=== PATIENT | female | born 1995 | race Caucasian/White ===

== ENCOUNTER → 2020-03-25 11:18 | Outpatient (BNVA) | payer OTHER, SELFPAY | PROVIDERS: PCP Physician Assistant; Visit Provider Obstetrics & Gynecology | DX: Z09 Encounter for follow-up examination after completed treatment for conditions other than malignant neoplasm (principal); Z30.9 Encounter for contraceptive management, unspecified | CPT/HCPCS: 99212 ==

== ENCOUNTER 2020-04-01 08:31 | Outpatient (REF) | payer OTHER, SELFPAY | END 2020-04-01 08:32 | disposition home or self-care (01) | LOC: HO.LAB 08:31 | PROVIDERS: Visit Provider Internal Medicine | DX: Z20.828 Contact with and (suspected) exposure to other viral communicable diseases (principal) | CPT/HCPCS: C9803; U0003 ==

== ENCOUNTER 2020-11-19 08:16 | Outpatient (REF) | payer OTHER, SELFPAY ==
[2020-11-19 15:21] LABS: CT PCR NOT DETECTED (Not Detect.); NG PCR NOT DETECTED (Not Detect.)
== END 2020-11-19 08:17 | disposition home or self-care (01) ==
LOC: HO.LAB 08:16
PROVIDERS: Visit Provider Advanced Practice Midwife
DX: Z30.42 Encounter for surveillance of injectable contraceptive (principal); Z20.2 Contact with and (suspected) exposure to infections with a predominantly sexual mode of transmission
CPT/HCPCS: 81025; 87491; 87591; 88142; 96372

== ENCOUNTER 2020-11-22 14:12 | Outpatient (REF) | payer OTHER, SELFPAY | END 2020-11-22 14:13 | disposition home or self-care (01) | LOC: HO.LAB 14:12 | PROVIDERS: Visit Provider Advanced Practice Midwife | DX: Z13.89 Encounter for screening for other disorder (principal) ==

== ENCOUNTER → 2021-03-31 16:06 | Outpatient (BNVA) | payer OTHER, SELFPAY | PROVIDERS: Visit Provider Advanced Practice Midwife ==

== ENCOUNTER 2025-04-10 09:53 | Outpatient (AMB) | payer OTHER, SELFPAY ==
--- NOTE | 2025-04-10 09:56 | MHC.PC.OV ---
Vital Signs 04/10/25 10:02 Height 5 ft 2 in Weight 186 lb BMI 34.0 BP 138/74 Blood Pressure Location Rt brachial Position Sitting Respiration 12 Pulse 78 Pulse Source Pulse Oximeter Temp 97.2 F Temp Source Oral Pulse Oximetry (%) 99 Oxygen Delivery Method Room Air Intake Visit Reasons: CPE Intake Note: New patient to establish care and cpe Abalone Fisherman Required: No Patient : No Allergies seasonal allergies Allergy (Unknown, Uncoded 04/10/25 10:18) Unknown Medication List - Last Reviewed 04/10/25 by Mg Matos MA ketoconazole 2% appl topical BID ketoconazole 2% topical medroxyprogesterone (Depo-Provera) 150 mg IM [id number] mometasone 0.1% topical PNV,calcium 66-[id number] acid 27 mg iron- 1 mg (M-Lisha Plus) 1 tab PO DAILY triamcinolone acetonide 0.1% appl topical Tobacco use date assessed: 04/10/25 Dental Screening Dental Screen Date: 04/10/25 Did you have a dental visit in the last 12 months?: No Did you have a dental problem in the last 6 months where you did not have access to dental care?: No Was dental information given to patient?: Patient has dentist HPI HPI Comments History of Present Illness Details 30 y/o F with Iron Def anemia, obesity, seasonal allergies, fhx colon ca (MGM) s/p dilation and evacuation of her at 18 6/7 weeks for suspected placental abruption in the second trimester. Social: 3 children (2 girls 1 boy) Fhx: Mom w/ HTN, MGM with HTN colon ca Health Maintenance: Tdap 2024 Flu 03/2025 Pap 2020 [facility] [employer] [facility] History of Present Illness The patient is a 30-year-old female presenting to establish primary care for a CPE No previous medical records avail. Obesity: - The patient has a history of obesity with a BMI of 34. Seborrheic Dermatitis: - The patient reports that her dermatitis sometimes spreads to her face, and she uses ketoconazole cream and shampoo, which helps it resolve. Allergic Rhinitis: - The patient has a history of seasonal allergies which are not currently bothering her. - She manages her symptoms with Zyrtec. Contraceptive Management: - The patient is using Depo-Provera for control. Recent : - She had an uneventful and delivered a baby girl at [facility] two months ago. - She did not have any issues with diabetes or hypertension during the . - She reports that she had some leg swelling after giving , which has since resolved. - The patient is not . Past Medical History - Obesity with a BMI of 34 - History of iron deficiency anemia - Seborrheic dermatitis - Seasonal allergies - Recent was uneventful without hypertension or diabetes. Past Surgical History - History of dilation and curettage (D&C) Family History - Mother has high blood pressure - Maternal grandmother had high blood pressure and colon cancer Social History - The patient has three children: a 10-year-old daughter, an 8-year-old son, and a 2-month-old daughter. - She lives at home with her three children. - She reports feeling safe at home. - She is not . Review of Systems - Constitutional: Reports feeling well. - ENT: Reports seasonal allergies that are well-managed. - Skin: Reports dermatitis on the face that resolves with ketoconazole. - Cardiovascular: Denies swelling in her legs currently but had some which has resolved. - Gastrointestinal: Reports normal bowel movements and urination. - Psychiatric: Reports good mood and denies anxiety or depression. Physical Exam General: Well developed, well nourished, in no acute distress. Appears stated age. Head: Normocephalic, atraumatic. Eyes: Pupils are equal, round and reactive to light and accommodation. Conjunctivae are clear. Scleras nonicteric bilat. Vision grossly normal. Ears: TMs clear AU, EACS WNL Nose: Patent, without discharge. Slight evidence of allergies noted. Neck: No carotid bruit bilat. Supple, no adenopathy or thyromegaly. Breast: Edu on SBE Lungs: Clear to auscultation bilaterally. No rales, rhonchi or wheeze noted. Good air flow in all burns. Heart: Regular rate and rhythm. No murmurs, click, rubs or gallops are noted. Abdomen: Bowel sounds present in all quadrants. The abdomen is soft, nontender, with no masses or organomegaly noted. No hernias are noted. : Deferred. Reviewed recommendations for routine [employer] Musculoskeletal: Joints are nontender, without swelling, redness, or effusions. Range of motion is observed to be normal. Pulses: Peripheral pulses are equal and palpable bilaterally. Extremities: No clubbing, cyanosis nor edema is noted. Neurologic: Gait and station normal. Cranial Nerves 2-12 intact. Motor strength grossly symmetrical and intact. No sensory loss. Balance normal. Skin: No rashes, ulcers, or lesions noted. Turgor is good. Skin color is good. Hair and nails are without abnormalities. Psych: Normal eye contact, affect and mood appropriate, and normal interactions. Patient is alert and appropriate to context. Mood reported as good, no problems with anxiety or depression. Medical Decision Making The patient is a 30-year-old female presenting to critical access hospital care after a recent uneventful . She is feeling well and has no acute complaints. Given her recent extensive lab work, no further blood work is indicated at this time. Her chronic conditions, including seborrheic dermatitis and allergic rhinitis, are stable and managed with ketoconazole and Zyrtec, respectively. Refills for ketoconazole were provided. The physical exam revealed diffuse abdominal tenderness, which will be monitored; the patient was instructed to follow up if it worsens. The plan is for routine annual follow-up for health maintenance. Plan Health Maintenance - The patient is establishing primary care. - No blood work was ordered as she recently had labs during her . - She will continue taking her vitamin. - Recommended to return in one year for a physical, or sooner if needed. - Information was provided regarding walk-in clinics and lab locations for future needs. 1. Seborrheic Dermatitis - The patient uses ketoconazole cream and shampoo for dermatitis that sometimes affects her face, which has been effective. - Refills for ketoconazole were sent to her preferred pharmacy, [facility]. 2. Allergic Rhinitis - The patient manages her seasonal allergies with Zyrtec. - She was advised to continue monitoring her symptoms. 3. Contraceptive Management - The patient is currently using Depo-Provera for contraception and will continue. 4. Abdominal Tenderness - The patient was found to have some mild abdominal tenderness on exam. - She was advised to monitor this and to follow up if it worsens. Patient Instructions - Come back in one year for your annual physical exam, unless you need to be seen sooner. - If your abdominal tenderness gets worse, please let me know. - Refills for your ketoconazole cream and shampoo have been sent to your pharmacy. - Continue taking your vitamin. - If you get sick and cannot reach me, you can use the walk-in clinics in [place] or [place]. - Continue using Zyrtec for your seasonal allergies as needed. Consent Patient was informed and verbally consented to the use of an ambient scribe for clinic note documentation during this visit. An additional 15 minutes was spent addressing the problem(s) noted at todays visit. This includes time spent before the visit reviewing the chart, time spent during the visit, and time spent after the visit on documentation reviewing laboratory results, diagnostic imaging, medications, performing a medically necessary evaluation, counseling on diagnoses, care coordination, ordering appropriate tests, ordering appropriate medications, review of tests performed by other providers, reporting test results with the patient, communication with other healthcare providers. [facility] Medical History (Updated 04/10/25 @ 10:33 by Lindsey Chavez [facility]) No pertinent past medical history Surgical History (Updated 04/10/25 @ 10:05 by Mg Matos MA) H/O dilation and curettage No pertinent past surgical history Family History (Updated 04/10/25 @ 09:58 by Mg Matos MA) Father Medical history unknown Mother No problems noted. Maternal Grandmother Diabetes Colon cancer Son In good health Daughter In good health Sister In good health Brother No problems noted. Brother No problems noted. Brother No problems noted. Brother No problems noted. Social History (Updated 04/10/25 @ 10:05 by Mg Matos MA) Household Members: Children Both parents involved: No Caregiver staying overnight: No Housing: Apartment Are you a primary child adolescent care to a significant other at home: Yes Do you presently have visiting nurse or other home services: No 75 years or older and lives alone: No Alcohol intake: never Patient Tobacco Use Status: Never used Tobacco e-Cigarette/Vaping Use: Never Used Second Hand Smoke Exposure: No Substance Use Type: Marijuana Current occupational status: unemployed Current occupational exposures/hazards: No Cognitive needs: No Hearing needs: No Vision needs: No Questionnaire PHQ-9 Over the last 2 weeks, how often have you been bothered by any of the following problems? 1. Little interest or pleasure in doing things: not at all 2. Feeling down, depressed, or hopeless: not at all 3. Trouble falling or staying asleep, or sleeping too much: not at all 4. Feeling tired or having little energy: not at all 5. Poor appetite or overeating: not at all 6. Feeling bad about yourself - or that you are a failure or have let yourself or your family down: not at all 7. Trouble concentrating on things, such as reading the newspaper or watching television: not at all 8. Moving or speaking so slowly that other people could have noticed. Or the opposite - being so fidgety or restless that you have been moving around a lot more than usual: not at all 9. Thoughts that you would be better off or of hurting yourself in some way: not at all Total score: 0 Depression Screening Interpretation: Negative Depression Screening Done: Yes 45691 - PHQ-9 Billing: Yes Source: Developed by Drs. Faizan Ambrose, Rupa Mercado, Conner Ruiz and colleagues, with an educational yessy from edo. Thrive Questionnaire Date Thrive assessed: 04/10/25 I am a: Patient What is your living situation today?: I have a steady place to live Within the past 12 months, did the food you bought not last and you didn't have the money to get more?: Never true Within the past 12 months, did you worry whether your food would run out before you got money to buy more?: Never true Do you have trouble paying for medicines?: No Do you have trouble getting transportation to medical appointments?: No Do you have trouble paying your heating and electricity bill?: No Do you have trouble taking care of your child, family member or friend?: No Do you have trouble with day-to-day activities such as bathing, preparing meals, shopping, managing finances, etc.?: No Are you currently unemployed and looking for a job?: Yes Are you interested in more education?: Yes Please select the resources that you would like help with: None Currently or been in a relationship where the following occur: No concerns reported THRIVE Score: 0 AUDIT C Alcohol Use Questionnaire (AUDIT-C) 1. How often do you have a drink containing alcohol?: Never 3. How often do you have six or more drinks on one occasion?: Never Total Score: 0 Score Reviewed/Action Taken: Yes KRISS-7 AMB Questionnaire KRISS-7 Date KRISS - 7 assessed: 04/10/25 Feeling nervous, anxious, or on edge: 0 = Not at all Not being able to stop or control worryin = Not at all Worrying too much about different things: 0 = Not at all Trouble relaxin = Not at all Being so restless that it is hard to sit still: 0 = Not at all Becoming easily annoyed or irritable: 0 = Not at all Feeling afraid as if something awful might happen: 0 = Not at all Total KRISS-7 score (0-4 normal; 5-9 mild; 10-14 moderate; 15-21 severe): 0 Source: Developed by Drs. Faizan Ambrose, Rupa Mercado, Conner Ruiz and colleagues, with an educational yessy from [employer]o. KRISS-7 Assessment Billing KRISS-7 Assessment Tool: KRISS-7 Assessment 59495 Physical exam (Primary Care) Vital Signs: Last Vital Signs Temp 97.2 F 04/10/25 10:02 Pulse 78 04/10/25 10:02 Resp 12 04/10/25 10:02 BP 138/74 04/10/25 10:02 Pulse Ox 99 04/10/25 10:02 Oxygen Delivery Method Room Air 04/10/25 10:02 BMI result Body Mass Index 34.0 BMI Assessment/Plan discussion: High BMI High, discussed plan: lifestyle Tobacco/Smoking Status: Tobacco use Status Tobacco use date assessed 04/10/25 04/10/25 10:00 Patient Tobacco Use Status Never used Tobacco 04/10/25 10:05 e-Cigarette/Vaping Use Never Used 04/10/25 10:05 PHQ-9: PHQ-9 Score PHQ-9: Total score 0 04/10/25 10:06 Depression Screening Interpretation: Negative Thrive Assessment: Date of Thrive Assessment Date Thrive assessed 04/10/25 04/10/25 09:58 Currently or been in a relationship where the following occur: No concerns reported Coding Level of Care Code New Pt Level 2 (07297) New Pt Prev Care 18-39yr(58899 Diagnoses Encounter to establish care Z76.89 Obesity (BMI 30-39.9) E66.9 Iron deficiency anemia, unspecified iron deficiency anemia type D50.9 Iron deficiency anemia type: unspecified iron deficiency Seborrheic dermatitis L21.9 History of Papanicolaou smear of cervix Z92.89 Adult general medical exam Z00.00 Additional Codes KRISS-7 Assessment Billing - KRISS-7 Assessment Tool: KRISS-7 Assessment 23679 ([id number]) PHQ-9 - 99932 - PHQ-9 Billing: Yes ([id number]) Assessment & Plan Assessment & Plan (1) Encounter to establish care: Code(s): Z76.89 - Persons encountering health services in other specified circumstances (2) Obesity (BMI 30-39.9): Code(s): E66.9 - Obesity, unspecified Category: Medical (3) Iron deficiency anemia: Comment: history of Code(s): D50.9 - Iron deficiency anemia, unspecified Category: Medical Qualifiers: Iron deficiency anemia type: unspecified iron deficiency Qualified Code(s): D50.9 - Iron deficiency anemia, unspecified (4) Seborrheic dermatitis: Code(s): L21.9 - Seborrheic dermatitis, unspecified Category: Medical (5) History of Papanicolaou smear of cervix: Onset Date: ~2020 Code(s): Z92.89 - Personal history of other medical treatment Category: Medical (6) Adult general medical exam: Onset Date: ~04/10/25 Code(s): Z00.00 - Encounter for general adult medical examination without abnormal findings Category: Medical Plan . Medications: New ketoconazole 2% 1 appl topical BID 15 grams 1RF ketoconazole 2% 1 appl topical Q2W 120 mL 2RF mometasone 0.1% 1 appl topical DAILY 60 mL 1RF triamcinolone acetonide 0.1% 1 appl topical BID 30 grams 1RF Patient Instructions: Walk-In Care (Urgent Care): We Make it Easy Walk-in for urgent medical issues such as: ? Seasonal Allergies ? Insect Bites ? Cough ? Diarrhea ? Acute Asthma Attacks ? Back, Knee or Joint Pain ? Ear Infection ? Fever without a Rash ? Headaches ? Nausea ? [place] Eye, Rash or Skin Irritation ? Sore Throat ? Sports Physicals ? Vomiting Most insurances are accepted. Patients do not need to be part of the [facility] to seek care at the walk-in clinic. Locations [address] [place] [address] Open Sunday through Sunday 8am-5pm *Hours may vary due to staffing availability. To confirm Walk-In Care hours please call. [address] [facility] , [place] [address] ? [phone] [facility] Walk-In Care in [place] provides services to ages 18 and over. Open Sunday-Sunday: 7 a.m. to 5 p.m. and Sunday: 9 a.m. to 3 p.m.* *Hours may vary due to staffing availability. To confirm Walk-In Care hours in [place], please call [phone]. [address] [place] [address] ? [phone] [facility] [place] Walk-In Care in [place] provides services to ages 12 and over. Open Sunday-Sunday: 8 a.m. to 5 p.m. Hours may vary due to staffing availability. To confirm Walk-In Care hours in [place], please call [phone]. LABORATORY SERVICES: [facility] ? Primary Location [address] [place] [address] Sunday through Sunday 6:00 AM ? 5:00 PM Sunday 7:00 AM ? 11:00 AM* [phone] The [facility] is centrally located near the front entrance of the [facility] for easy outpatient access. Convenient parking is provided for outpatients. *Hours may vary due to staffing availability. To confirm Laboratory hours for any location, please call [phone]. Offsite Location For your convenience, we offer offsite laboratory draw stations at the following locations: [address] [place] [address] ? [address], [address] Sunday through Sunday 7:30 AM ? 1:00 PM* [phone] *Hours may vary due to staffing availability. To confirm Laboratory hours for any location, please call [phone]. [place] ? [address] Sunday through Sunday 6:00 AM ? 3:30 PM* Sunday 6:30 AM ? 3 PM* [phone] *Hours may vary due to staffing availability. To confirm Laboratory hours for any location, please call [phone]. [address] [facility] Sunday through Sunday 7:30 AM ? 4:00 PM* [phone] *Hours may vary due to staffing availability. To confirm Laboratory hours for any location, please call [phone]. [address] [facility] Sunday through 9:00 AM ? 4:00 PM* *Hours may vary due to staffing availability. To confirm Laboratory hours for any location, please call [phone]. Appointments are not necessary. Walk-ins are welcome. Like all the departments throughout the [facility], our Lab undergoes frequent reviews to ensure the quality and accuracy of test results, and our staff takes special pride in its status as a nationally accredited facility. Patient Portal: [facility] ONE PATIENT. ONE RECORD. BETTER CARE. [facility] has a fully integrated, cutting-edge mobile electronic health information system that has revolutionized the way we care for our patients and manage our organization. This system improves communication and coordination enabling us to provide safe, higher-quality care, and an overall positive experience for staff and patients. Our first priority, as always, is to deliver the highest quality care possible. The system is running in the background supporting that priority. This portal is for all [facility] services and practices. If you are experiencing any technical difficulties with enrolling or logging into the Patient Portal please complete the [facility] Patient Portal Technical Support Form. [facility] now offers a new secure on-line interactive tool for patients to review their health information ? ?Patient Portal. This interactive web portal will enable patients and their families to take an active role in their care by providing easy, secure access to their health information via the internet. The Patient Portal provides patients with instant access to their health information, including laboratory results, medications, allergies, demographic information, visit history, and more. In addition to managing their own care, parents and health care proxies with authorized consent will appreciate the ability to access the records of those individuals for whom they provide care. Please note: if you wish to gain access (Proxy) to another patient?s portal, you will be required to come to the Medical Records Department in person at [facility]. Both the patient giving proxy access and the proxy will need to provide photo identification and complete the appropriate authorization. The Patient Portal also allows track their appointments online. The [facility] Patient Portal also saves patients time by allowing them to submit updates to their demographic and contact information prior to their visits. Portal email notifications will also alert patients to any new activity on their portal, such as test results and new appointments. In order to initially enroll in the [facility] Patient Portal, you will need to enter some required information including the following: your [facility] Medical Record number your personal home email address name date of Please note: In order to enroll in the [facility] Patient Portal, we need to have your email address on file in your electronic medical record. ?The email address needs to be specific for one person (yourself) in order for your Portal enrollment to be successful. ?You can update your email address in person with our Registration staff when you are registering for a hospital visit. ?Otherwise, you will need to come to the Health Information Management (Medical Records) Department at [facility]. ?We are open from Sunday ? Sunday from 7:30 a.m. ? 4:30 p.m. ?You will be required to present a photo id. Once you have successfully enrolled in the Patient Portal, you will receive a one-time user id and password for the Portal, sent to your email address. ?This will allow you to log into the Patient Portal within 99 hrs and reset your own logon id and password, and define personal security questions. ?Once your permanent login and password have been set, you can log into the [facility] Patient Portal at any time via the blue button above or from the Portal Logon button on any page of the [facility] website. [facility] and [facility] encourage all of our patients to enroll in Patient Portal as it presents a valuable opportunity for patients and their families to actively participate in their care and stay healthy Welcome to [facility]. ?We look forward to working with you. Health screenings for women You should visit your health care provider from time to time, even if you are healthy. The purpose of these visits is to: Screen for medical issues Assess your risk for future medical problems Encourage a healthy lifestyle Update vaccinations and other preventive care services Help you get to know your provider in case of an illness Information Even if you feel fine, you should still see your provider for regular checkups. These visits can help you avoid problems in the future. For example, the only way to find out if you have high blood pressure is to have it checked regularly. High blood sugar and high cholesterol levels also may not have any symptoms in the early stages. A simple blood test can check for these conditions. There are specific times when you should see your provider or receive specific health screenings. The [place] Preventive Services Task Force publishes a list of recommended screenings. Below are screening guidelines for women ages 18 to 39. BLOOD PRESSURE SCREENING Your blood pressure should be checked at least once every 3 to 5 years if: Your blood pressure is in the normal range (top number less than 120 mm Hg and bottom number less than 80 mm Hg) You don't have risk factors for high blood pressure Ask your provider if you need your blood pressure checked more often if: The top number is 120 to 129 mm Hg or the bottom number is 70 to 79 mm Hg You have diabetes, heart disease, kidney problems, are overweight, or have certain other health conditions You have a first-degree relative with high blood pressure You are Black You had high blood pressure during a If the top number is 130 mm Hg or greater or the bottom number is 80 mm Hg or greater, this is considered stage 1 hypertension. Schedule an appointment with your provider to learn how you can reduce your blood pressure. Watch for blood pressure screenings in your area. Ask your provider if you can stop in to have your blood pressure checked. BREAST CANCER SCREENING Experts do not agree about the benefits of breast self-exams in finding breast cancer or saving lives. Talk to your provider about what is best for you. A screening mammogram is not recommended for most women under age 40. Your provider may discuss and recommend mammograms, MRI scans, or ultrasounds if you have an increased risk for breast cancer, such as: A mother or sister who had breast cancer at a young age (most often starting screening earlier than the age the close relative was diagnosed) You carry a high-risk genetic marker CERVICAL CANCER SCREENING Cervical cancer screening should start at age 21 years unless your provider advises otherwise. After the first test: Women ages 21 through 29 should have a Pap test every 3 years. Exoprts do not agree on whether HPV testing is recommended for this age group. Women ages 30 through 65 should be screened with either a Pap test every 3 years or the HPV test every 5 years or both tests every 5 years (called cotesting ). Women who have been treated for precancer (cervical dysplasia) should continue to have Pap tests for 20 years after treatment or until age 65, whichever is longer. If you have had your uterus and cervix removed (total hysterectomy), and you have not been diagnosed with cervical cancer or precancer (high grade cervical neoplasia), you do not need cervical cancer screening. CHOLESTEROL SCREENING Cholesterol screening should begin at: Age 45 for women with no known risk factors for coronary heart disease Age 20 for women with known risk factors for coronary heart disease Repeat cholesterol screening should take place: Every 5 years for women with normal cholesterol levels More often if changes occur in lifestyle (including weight gain and diet) More often if you have diabetes, heart disease, kidney problems, or certain other conditions DIABETES SCREENING You should be screened for diabetes starting at age 35 and then repeated every 3 years if you have no risk factors for diabetes. Screening may need to start earlier and be repeated more often if you have other risk factors for diabetes, such as: You have a first degree relative with diabetes. You are overweight or have obesity. You have high blood pressure, prediabetes, or a history of heart disease. Screening for diabetes should be done if you are planning to become and you are overweight and have other risk factors such as high blood pressure. DENTAL EXAM Go to the dentist once or twice every year for an exam and cleaning. Your dentist will evaluate if you need more frequent visits. EYE EXAM Have an eye exam every 5 to 10 years before age 40. If you have vision problems, have an eye exam every 2 years or more often if recommended by your provider. You should have an eye exam that includes an examination of your retina (back of your eye) at least every year if you have diabetes. IMMUNIZATIONS Commonly needed vaccines include: Flu shot: get one every year. COVID-19 vaccine: ask your provider what is best for you. Tetanus-diphtheria and acellular pertussis (Tdap) vaccine: have one at or after age 19 as one of your tetanus-diphtheria vaccines if you did not receive it as an adolescent. Tetanus-diphtheria: have a booster (or Tdap) every 10 years. Varicella vaccine: receive 2 doses if you never had chickenpox or the varicella vaccine. Hepatitis B vaccine: receive 2, 3, or 4 doses, depending on your exact circumstances. Measles, mumps, and rubella (MMR) vaccine: receive 1 to 2 doses if you are not already immune to MMR. Your provider can tell you if you are immune. Ask your provider about the human papillomavirus (HPV) vaccine if: You have not received the HPV vaccine in the past You have not completed the full vaccine series (you should catch up on this shot) Ask your provider if you should receive other immunizations if you have certain health problems that increase your risk for some diseases such as pneumonia. INFECTIOUS DISEASE SCREENING Women who are sexually active should be screened for chlamydia and gonorrhea up until age 25. Women 25 years and older should be screened for chlamydia and gonorrhea if at high risk. Screening for hepatitis C: All adults ages 18 to 79 should get a one-time test for hepatitis C. people should be screened at every . Screening for human immunodeficiency virus (HIV): All people ages 15 to 65 should get a one-time test for HIV. Depending on your lifestyle and medical history, you may also need to be screened for infections such as syphilis and HIV, as well as other infections. PHYSICAL EXAM All adults should visit their provider from time to time, even if they are healthy. The purpose of these visits is to: Screen for disease Assess your risk of future medical problems Encourage a healthy lifestyle Update your vaccinations and other preventive care services Maintain a relationship with a provider in case of an illness Your height, weight, and BMI should be checked at every exam. During your exam, your provider may ask you about: Depression and anxiety Diet and exercise Alcohol and tobacco use Safety issues, such as using seat belts, smoke detectors, and intimate partner violence Your medicines and risk for interactions SKIN SELF-EXAM Your provider may check your skin for signs of skin cancer, especially if you're at high risk, such as if you: Have had skin cancer before Have close relatives with skin cancer Have a weakened immune system OTHER SCREENING Talk with your provider about colon cancer screening if you have a strong family history of colon cancer or polyps, or if you have had inflammatory bowel disease or polyps yourself. Routine bone density screening of women under 40 is not recommended.
[2025-04-10 10:02] VITALS: BP 138/74; PULSE 78; RESP 12; TEMP 36.2; O2SAT 99; BMI 34.0
--- OUTSIDE RECORDS SUMMARY | 2025-04-10 11:09 | XMS_ITS | Encounter Summary ---
Author Organization [facility] Address [address] [place] [address] Care Team Providers Care Sludge Filtration Operator Name Role Phone Unavailable Primary Care Provider Unavailabl e Encounter Details Date Type Department Care Team (Latest Contact Info) Description 08/17/2021 Abstract [facility] CONVERSIONS Dental, Provider, DDS Social History Tobacco Use Types Packs/Day Years Used Date Smoking Tobacco: Never Assessed Comments Unknown Sex and Gender Information Value Date Recorded Sex Assigned at Female 03/27/2022 10:18 AM EDT Legal Sex Female 10:18 AM EDT Gender Identity Female 03/27/2022 10:18 AM EDT Sexual Orientation Straight 03/27/2022 10 :18 AM EDT documented as of this encounter Plan of Treatment Upcoming Encounters Date Type Department Care Team (Late st Contact Info) Description 06/10/2025 1:30 PM EST Office Visit [facility] ADULT DENTAL [address] [place] [address] Joel Rossaris [address] [place] [address] documented as of this encounter Visit Diagnoses Not on filedocumented in this encounter
--- OUTSIDE RECORDS SUMMARY | 2025-04-10 11:09 | XMS_ITS | Encounter Summary ---
Author Organization [facility] Address [address] [place] [address] Care Team Providers Care News Cameraman Name Role Phone Unavailable Primary Care Provider Unavailabl e Encounter Details Date Type Department Care Team (Latest Contact Info) Description 08/06/2019 Abstract [facility] CONVERSIONS Dental, Provider, DDS Social History Tobacco [...] Description 06/10/2025 1:30 PM EST Office Visit [facility] ADULT DENTAL [address] [place] [address] Vandana, Dyan [address] [place] [address] documented as of this encounter Visit Diagnoses Not on filedocumented in this encounter
--- OUTSIDE RECORDS SUMMARY | 2025-04-10 11:09 | XMS_ITS | Clinical Summary ---
Author Organization [facility] Address [address] [place] [id number] Phone Care Team Providers Care Chef Manager Name Role Phone Yamilet Morales MD Primary Care Provider Unavailabl e Immunizations Immunization Administration Dates Next Due DTaP 5 08/20/2001, 1,1997,1996 Hep B, ped/adol 09/27/2000,1997,1997 Hib (PRP-T) 09/27/2000,1997,1997 IPV 08/20/2001, 1,1997,1996 MMR 08/20/2001,09/27/2000 Td (adult) (MBL), 2 Lf tetan us toxoid, PF, adsorbed 12/19/2005 Varicella 10/25/2000 Family History Relation Name Status Comments Brother Brother: ADD/AD HD Mother Mother: Depress ion Social History Tobacco Use Types Packs/Day Years Used Date Smoking Tobacco: Never Assessed Comments Unknown Sex and Gender Information Value Date Recorded Sex Assigned at Not on file Legal Sex Female 4:16 PM EDT Gender Identity Not on file Sexual Orientation Not on file Plan of Treatment Health Maintenance Due Date Last Done Comments Varicella Vaccines (2 of 2 - 2-dose childhood series) 09/17/2001 10/25/2000 DTaP,Tdap,and Td Vaccines (5 - Tdap) 02/17/2008 12/19/2005, 08/20/2001, 09/27/2000, Additional history exists HPV Vaccines (1 - 3-dose SCDM series) 02/17/2024 Influenza Vaccines (#1) 2024 COVID-19 Vaccine ( season) 2025 HIB Vaccines Completed 09/27/2000, 07/26, 1997 Hepatitis B Vaccines Completed 09/27/2000, 1997, 1997 IPV Vaccines Completed 08/20/2001, 07/2000, 1997, Additional history exists MMR Vaccines Completed 08/20/2001, 09/27/2000 Hepatitis A Vaccines Aged Out No long er eligible based on patient's age to complete this topic Men B Vaccine Aged Out No longer elig ible based on patient's age to complete this topic Meningococcal Vaccine Aged Out No fran lv eligible based on patient's age to complete this topic Pneumococcal Vaccine Aged Out No long er eligible based on patient's age to complete this topic Care Teams Chef Manager Relationship Specialty Start Date End Date Yamilet Morales MD PCP - General 01/05/17
--- OUTSIDE RECORDS SUMMARY | 2025-04-10 11:09 | XMS_ITS | Encounter Summary ---
Author Organization [facility] Address [address] [place] [phone] Phone Care Team Providers Care Digestion Operator Name Role Phone Yamilet Morales MD Primary Care Provider Unavailabl e Encounter Details Date Type Department Care Team (Late st Contact Info) Description 01/11/2017 Conversion Encounter [facility] - [address] [phone] Social History Tobacco Use Types Packs/Day Years Used Date Smoking Tobacco: Never Assessed Comments Unknown Sex and Gender Information Value Date Recorded Sex Assigned at Not on file Legal Sex Female 4:16 PM EDT Gender Identity Not on file Sexual Orientation Not on file documented as of this encounter Plan of Treatment Not on file documented as of this encounter Visit Diagnoses Not on filedocumented in this encounter Care Teams Digestion Operator Relationship Specialty Start Date End Date Yamilet Morales MD PCP - General 01/05/17 documented as of this encounter
--- OUTSIDE RECORDS SUMMARY | 2025-04-10 11:09 | XMS_ITS | Clinical Summary ---
Author Organization [employer] Address [address] [place] [address] Care Team Providers Care Belt And Link Shop Supervisor Name Role Phone Unavailable Primary Care Provider Unavailabl e Allergies No known active allergies Medications No known medications Active Problems Problem Noted Date Diagnosed Date Dental abscess 10/17/2022 Dental calculus 08/28/2022 Bleeding gums 08/28/2022 Social History Tobacco Use Types Packs/Day Years Used Date Smoking Tobacco: Never Passive Smoke Exposure: Never Smokeless Tobacco: Never Tobacco Cessation:Counseling Given: No Alcohol Use Standard Drinks/Week Comments Never 0 (1 standard drink = 0.6 oz pur e alcohol) Comments Unknown Sex and Gender Information Value Date Recorded Sex Assigned at Female 03/27/2022 10:18 AM EDT Legal Sex Female 10:18 AM EDT Gender Identity Female 03/27/2022 10:18 AM EDT Sexual Orientation Straight 03/27/2022 10 :18 AM EDT Last Filed Vital Signs Vital Sign Reading Time Taken Comments Blood Pressure 116/70 08/28/2022 9:04 AM EDT Pulse 72 08/28/2022 9:04 AM EDT Temperature - - Respiratory Rate - - Oxygen Saturation - - Inhaled Oxygen Concentration - - Weight - - Height - - Body Mass Index - - Plan of Treatment Upcoming Encounters Date Type Department Care Team (Late st Contact Info) Description 06/10/2025 1:30 PM EST Office Visit [facility] ADULT DENTAL [address] [place], [place] [phone] VandanaJoelDyan [address] [place] [address] Health Maintenance Due Date Last Done Comments Depression Screening 1997 HIV Screening 1997 SDOH Screening 1997 Disability Screening 1997 Alcohol/Substance Use Screening 2009 Family Planning (PISQ) 02/17/2012 Hepatitis C Screening 2015 Pap Smear 2018 Dental Oral Exam 02/28/2023 08/28/2022 Dental Prophylaxis 02/28/2023 08/28/2022 Dental X-Ray: Bitewings 08/30/2023 08/28/2022 Tobacco Screening 10/18/2023 10/17/2022 COVID-19 Vaccine (2 - season) 2025 03/02/2021 Influenza Vaccine (#1) 2025 03/24/2017, 2012 Dental X-Ray: Full Mouth 10/18/2025 10/17/2022 DTaP/Tdap/Td Vaccines (8 - Td or Tdap) 12/25/2026 12/25/2016, 12/10/2014, 01/10/2011, Additional history exists Zoster Vaccines (1 of 2) 2047 RSV Patients and Patients Aged 60 years or older (1 - 1-dose 75+ series) 02/17/2072 HIB Vaccines Completed 09/27/2000, 07/26, 1997 Hepatitis B Vaccines Completed 09/27/2000, 1997, 1997 IPV Vaccines Completed 08/20/2001, 07/2000, 1997, Additional history exists Meningococcal Vaccine Aged Out 01/10/2011 No fran lv eligible based on patient's age to complete this topic HPV Vaccines Completed 05/23/2013, 12/26, 02/20/2007 Hepatitis A Vaccines Completed 05/23/2013, 01/11/20 11 Meningococcal B Vaccine Aged Out No l onger eligible based on patient's age to complete this topic Pneumococcal Vaccine: Pediatrics (0 to 5 Years) and At-Risk Patients (6 to 49) Years Aged Out No longer eligible based on patient's age to complete this topic RSV under 20 months Aged Out No longe r eligible based on patient's age to complete this topic Rotavirus Vaccines Aged Out No longer eligible based on patient's age to complete this topic Procedures Procedure Name Priority Date/Time Associated Diagnosis Comments PANORAMIC RADIOGRAPHIC IMAGE Routine 10/17/2022 1:00 PM EDT Full PROPHYLAXIS - ADULT Routine 023 9:00 AM EDT Dental calculus Bleeding gums BITEWINGS - 4 RADIOGRAPHIC IMAGES Routine 08/28/2022 9:00 AM EDT Dental calculus Bleeding gums PERIODIC ORAL EVALUATION - ESTABLISHED PATIENT Routine 08/28/2022 8:45 AM EDT from Last 3 Months or Most Recently Relevant to Health Maintenance Insurance [facility] MEDICAID STAND ADULT
--- OUTSIDE RECORDS SUMMARY | 2025-04-10 11:09 | XMS_ITS | Encounter Summary ---
Author Organization [facility] Address [address] [place] [address] Care Team Providers Care Roller Varnisher Name Role Phone Unavailable Primary Care Provider Unavailabl e Encounter Details Date Type Department Care Team (Latest Contact Info) Description 06/21/2020 Abstract [facility] CONVERSIONS Dental, Provider, DDS Social History Tobacco [...] Description 06/10/2025 1:30 PM EST Office Visit [facility] ADULT DENTAL [address] [place] [address] Joel Rossaris [address] [place] [address] documented as of this encounter Visit Diagnoses Not on filedocumented in this encounter
== END 2025-04-10 10:29 | disposition home or self-care (01) ==
LOC: HO.HMCFM 09:54
PROVIDERS: PCP Nurse Practitioner Family; Visit Provider Nurse Practitioner Family
DX: Z00.00 Encounter for general adult medical examination without abnormal findings (principal); D50.9 Iron deficiency anemia, unspecified; E66.9 Obesity, unspecified; Z68.34 Body mass index [BMI] 34.0-34.9, adult; L21.9 Seborrheic dermatitis, unspecified; Z92.89 Personal history of other medical treatment; Z76.89 Persons encountering health services in other specified circumstances

== ENCOUNTER → 2025-04-10 09:53 | Outpatient (BNVA) | payer OTHER, SELFPAY | PROVIDERS: PCP Nurse Practitioner Family; Visit Provider Nurse Practitioner Family | DX: Z00.00 Encounter for general adult medical examination without abnormal findings (principal); E66.9 Obesity, unspecified; L21.9 Seborrheic dermatitis, unspecified; J30.9 Allergic rhinitis, unspecified; R10.9 Unspecified abdominal pain; D50.9 Iron deficiency anemia, unspecified; Z76.89 Persons encountering health services in other specified circumstances; Z92.89 Personal history of other medical treatment; Z68.34 Body mass index [BMI] 34.0-34.9, adult | CPT/HCPCS: 96127; 99202; 99385 ==